=== PATIENT | female | born 1990 | race Caucasian/White ===

== ENCOUNTER 2017-01-13 10:13 | Inpatient (IN) | payer OTHER ==
[2017-01-12 11:50] VITALS: BMI 42.5
[2017-01-13] MEDS ORDERED: LIDOCAINE HCL/PF 2% SDV 5ML VIAL ONE (12:45)
[2017-01-13] MEDS ORDERED: MIDAZOLAM HCL 2 MG/2 ML SINGLE DOSE VIAL ONE (12:46)
[2017-01-13] MEDS ORDERED: PROPOFOL 20 ML ONE ×2 (12:46→12:48)
[2017-01-13] MEDS ORDERED: ROCURONIUM BROMIDE 50 MG/5 ML VIAL ONE ×2 (12:46→14:33)
[2017-01-13] MEDS ORDERED: DESFLURANE GAS 240 ML BOTTLE IH ONE (12:49)
[2017-01-13] MEDS ORDERED: BUPIVACAINE HCL/PF 0.5% (5MG/ML) 10 ML VIAL ONE (12:49)
--- NOTE | 2017-01-13 13:09 | HP ---
History & Physical Update - History History: No Change - Physical Physical: No Change - Assessment Assessment: No Change - Plan Plan: No Change Currently as noted:: Laparoscopic vertical sleeve gastrectomy possible open
[2017-01-13] MEDS ORDERED: CLINDAMYCIN PHOSPHATE 900 MG/6 ML VIAL IVPB ONE (13:59)
[2017-01-13] MEDS ORDERED: DEXAMETHASONE SOD PHOSPHATE 4 MG/1 ML VIAL ONE ×2 (14:01→15:08)
[2017-01-13] MEDS ORDERED: CLINDAMYCIN PHOSPHATE 600 MG/4 ML VIAL ONE (14:01)
[2017-01-13] MEDS ORDERED: BUPIVACAINE HCL/PF 0.5% (5MG/ML) 10 ML VIAL IJ ONE (14:15)
[2017-01-13] MEDS ORDERED: KETOROLAC TROMETHAMINE 30 MG/1 ML VIAL ONE (15:08)
[2017-01-13] MEDS ORDERED: NEOSTIGMINE METHYLSULFATE 0.5 MG/ML - 10 ML MDV ONE (15:08)
[2017-01-13] MEDS ORDERED: GLYCOPYRROLATE 0.2 MG/1 ML VIAL ONE (15:08)
[2017-01-13] MEDS ORDERED: HYDROmorphone HCL CARPU-JECT 1 MG/1 ML DISP.SYRIN IVPB PRN (15:20)
[2017-01-13] MEDS ORDERED: ONDANSETRON 4 MG/2 ML VIAL IVPUSH SCH (15:30)
[2017-01-13] MEDS ORDERED: SODIUM CHLORIDE 1,000 ML IV SCH (15:30)
[2017-01-13] MEDS ORDERED: METOCLOPRAMIDE HCL INJECTION 10 MG/2 ML VIAL IVPUSH SCH (15:30)
--- NOTE | 2017-01-13 16:06 | SPEC ---
DATE OF OPERATION: 01/13/2017 SURGEON: Liv Smalls MD SEPTIC TANK SETTER: Bolivar Loyd MD PREOPERATIVE DIAGNOSIS: Morbid obesity. POSTOPERATIVE DIAGNOSIS: Morbid obesity. PROCEDURE: Laparoscopic vertical sleeve gastrectomy and upper endoscopy. ESTIMATED BLOOD LOSS: 30 mL DRAINS: None. ANESTHESIA: GET. SPECIMEN: Greater curvature of the stomach. TUBES: A 36-Turkmen bougie. REASON FOR PROCEDURE: This is a 26-year-old female who presented to the office for weight loss options. After describing the different options, she decided to proceed with a laparoscopic, possible open vertical sleeve gastrectomy. The patient was seen by the respective subspecialties and cleared for surgery. The risks and benefits of the procedure were explained. These included bleeding, infection, hernia, PA, DVT, PE, injury to surrounding structures including the liver, colon, bowel, spleen, esophagus, vessel injury, nerve injury, weight regain, gastric leak, staple line leak, sleeve leak, obstruction, vitamin deficiency, hair loss, and as some of the possible complications. The patient understood and signed informed consent. DESCRIPTION OF PROCEDURE: The patient was placed supine on the operating room table. The patient underwent general endotracheal intubation. A Lorenzo catheter was inserted. The arms were brought out at 90 degrees and secured. A foot board was placed, and the legs were secured laterally with padding. The abdomen was prepped and draped in the usual sterile fashion. A timeout was performed. An incision was made in the left upper quadrant, and a Veress needle inserted. Pneumoperitoneum was established. Subsequently, the Veress needle was removed, and a 12-mm trocar was placed. The laparoscopic camera was inserted, and inspection of the abdominal cavity was performed. An incision was made in the supraumbilical region, and a 15-mm trocar placed under direct visualization. A 5-mm trocar was then placed in the right upper quadrant, and a 5-mm trocar placed below the left subcostal margin. A stab wound was made in the subxiphoid area, and a Anna Marie clamp inserted and removed to dilate the tract. A Manisha liver retractor was inserted. The post was secured at the bedside by the nursing staff. The patient was placed in steep reverse Trendelenburg position. The Manisha liver retractor was used to secure the liver towards the anterior abdominal wall. The pylorus was identified and 6 cm proximal to it, the lesser sac was entered using the Ligasure device. All lateral attachments to the greater curvature of the stomach including the short gastric vessels were ligated using the Ligasure device toward the gastrosplenic and gastrophrenic ligaments. Once this was done in its entirety, it was confirmed that all tubes within the nasal or oropharyngeal cavity including a temperature probe was removed by Anesthesia. The bougie was then inserted by Anesthesia. Transection of the stomach was then begun staying adjacent to the bougie but away from the angularis. Transection of the stomach was performed near the portion of the stomach where the lesser sac was entered. Two laparoscopic Endo-NICOLE black loads were used at this location. Laparoscopic Endo-NICOLE purple loads were then used for the remainder of the transection until the greater curvature of the stomach was fully transected. This was done staying close to the bougie. Care was taken to stay away from the angle of His cephalad. The staple line was then inspected. Hemostasis was identified. A leak test was then performed. The stomach was clamped distally to the staple line. Irrigation solution was placed in the left upper quadrant, and air insufflated by Anesthesia into the sleeve. No leaks were identified, and no obstruction was identified. This was done throughout the entirety of the staple line. At this point, the irrigation solution was suctioned, and again hemostasis noted. The 15-mm supraumbilical trocar was then removed, and the specimen removed from the site using a sponge stick west. The specimen was inspected, and a Veress needle inserted. The specimen insufflated adequately, and no leak was identified. The staple line was noted to be intact. A Rip Michael device was then used to temporarily close the fascia with a 0 Vicryl suture at this site. The 15-mm trocar was then reinserted, and the 12-mm trocar in the left upper quadrant removed. The fascia at this site was then closed using a Rip Michael device with a 0 Vicryl suture. Again, hemostasis was noted. The Manisha liver retractor was then removed under direct visualization. Pneumoperitoneum was desufflated, and the fascial sutures were secured. Hemostasis was noted at all incision sites, and Marcaine was injected at all incision sites. All incision sites were closed using 4-0 Biosyn. Sterile dressings were applied. The patient tolerated the procedure well, and was transferred to the recovery room in stable condition with the Lorenzo catheter intact. The patient was transferred to telemetry for further monitoring. To further look for a leak or obstruction, an upper endoscopy was performed. The endoscope was inserted into thte esophagus, GE junction, and to the entirety of the sleeve. The sleeve staple line was noted to be fully intact without any leak or obstruction. The endoscope was removed. The patient tolerated the procedure well, was transferred to recovery room in stable condition. LIV SMALLS M.D. [id number]
[2017-01-13] MEDS: ACETAMINOPHEN 1000 MG/100 ML VIAL (NON FORMULARY) IVPB SCH ×3 (16:15→21:57)
[2017-01-13 16:37] LABS: MCH 26.9 pg (25.7-33.7); MCHC 33.2 g/dl (32.0-36.0); MEAN PLT VOLUME 8.7 fl (7.5-11.1); PLATELET COUNT 256 K/MM3 (134-434); RDW 14.7 % (11.6-15.6); WHITE BLOOD COUNT 16.2 K/mm3 (4.0-10.0)
[2017-01-13] MEDS ORDERED: FAMOTIDINE 20 MG PREMIXED IVPB IVPB ONE (17:00)
[2017-01-13 17:18] LABS: ALBUMIN 3.2 g/dl (3.4-5.0); ALK PHOS 81 U/L (45-117); ANION GAP 9 (8-16); BILIRUBIN,TOTAL 0.3 mg/dL (0.2-1.0); CALCIUM 7.8 mg/dL (8.5-10.1); CO2 24 mmol/L (21-32); CREATININE 0.8 mg/dL (0.55-1.02); GLUCOSE,RANDOM 135 mg/dL (74-106); SGOT/AST 74 U/L (15-37); SGPT/ALT 92 U/L (12-78); TOT PROT 6.9 g/dl (6.4-8.2)
[2017-01-13] MEDS: SODIUM CHLORIDE 1,000 ML IV SCH (17:22)
[2017-01-13] MEDS ORDERED: HYDROmorphone HCL CARPU-JECT 1 MG/1 ML DISP.SYRIN IVPUSH PRN (17:59)
[2017-01-13] MEDS ORDERED: PROMETHAZINE HCL 25 MG/1 ML VIAL IVPUSH PRN (17:59)
[2017-01-13] MEDS ORDERED: ONDANSETRON 4 MG/2 ML VIAL IVPUSH PRN (17:59)
[2017-01-13] MEDS ORDERED: LACTATED RINGERS SOLUTION 1,000 ML IV SCH (18:00)
[2017-01-13] MEDS: HYDROmorphone HCL CARPU-JECT 1 MG/1 ML DISP.SYRIN IVPB PRN ×2 (18:34→22:09)
[2017-01-13] MEDS: ONDANSETRON 4 MG/2 ML VIAL IVPUSH SCH (19:58)
[2017-01-13] MEDS ORDERED: FAMOTIDINE 20 MG/50 ML IVPB 50 ML IVPB SCH (22:00)
[2017-01-13] MEDS ORDERED: ENOXAPARIN NA (PORCINE) 40 MG/0.4 ML DISP.SYRIN SQ SCH (22:00)
[2017-01-13] MEDS: METOCLOPRAMIDE HCL INJECTION 10 MG/2 ML VIAL IVPUSH SCH (22:48)
[2017-01-13] MEDS: FAMOTIDINE 20 MG/50 ML IVPB 50 ML IVPB SCH (22:49)
[2017-01-14] MEDS: SODIUM CHLORIDE 1,000 ML IV SCH ×2 (00:10→17:42)
[2017-01-14] MEDS: ONDANSETRON 4 MG/2 ML VIAL IVPUSH SCH ×7 (00:15→23:14)
[2017-01-14] MEDS: ACETAMINOPHEN 1000 MG/100 ML VIAL (NON FORMULARY) IVPB SCH ×3 (02:21→14:04)
[2017-01-14] MEDS: HYDROmorphone HCL CARPU-JECT 1 MG/1 ML DISP.SYRIN IVPB PRN ×4 (04:13→20:37)
[2017-01-14] MEDS: METOCLOPRAMIDE HCL INJECTION 10 MG/2 ML VIAL IVPUSH SCH ×4 (04:16→21:38)
[2017-01-14 07:14] LABS: MCH 26.9 pg (25.7-33.7); MCHC 33.3 g/dl (32.0-36.0); MEAN CELL VOLUME 80.7 fl (80-96); MEAN PLT VOLUME 8.9 fl (7.5-11.1); PLATELET COUNT 242 K/MM3 (134-434); RDW 14.6 % (11.6-15.6); WHITE BLOOD COUNT 15.3 K/mm3 (4.0-10.0)
[2017-01-14 07:36] LABS: ALBUMIN 3.2 g/dl (3.4-5.0); ALK PHOS 69 U/L (45-117); ANION GAP 9 (8-16); BILIRUBIN,TOTAL 0.4 mg/dL (0.2-1.0); CALCIUM 7.6 mg/dL (8.5-10.1); CO2 23 mmol/L (21-32); CREATININE 0.7 mg/dL (0.55-1.02); GLUCOSE,RANDOM 132 mg/dL (74-106); SGOT/AST 50 U/L (15-37); SGPT/ALT 84 U/L (12-78); TOT PROT 6.7 g/dl (6.4-8.2)
[2017-01-14] MEDS: FAMOTIDINE 20 MG/50 ML IVPB 50 ML IVPB SCH ×2 (09:26→22:45)
[2017-01-14] MEDS: ENOXAPARIN NA (PORCINE) 40 MG/0.4 ML DISP.SYRIN SQ SCH ×2 (09:33→21:38)
[2017-01-14] MEDS ORDERED: SODIUM CHLORIDE 1,000 ML IV SCH (11:45)
--- NOTE | 2017-01-14 12:11 | PN ---
Progress Note (short form) - Note Progress Note: POD #1 - s/p gastric sleeve under general anesthesia. VSS. Pt. doing well, sitting up in chair comfortably. No complaints. No apparent anesthetic complications noted. Continue current care.
[2017-01-14] MEDS ORDERED: FLU VACCINE QUAD 60 MCG/0.5 ML (MDV 17-18) IM ONE (12:27)
[2017-01-14] MEDS: ACETAMINOPHEN 325 MG TABLET (FP) PO PRN (17:36)
[2017-01-14] MEDS: oxyCODONE HCL 5 MG TABLET PO PRN (23:13)
[2017-01-15] MEDS: ONDANSETRON 4 MG/2 ML VIAL IVPUSH SCH ×2 (04:03→06:30)
[2017-01-15] MEDS: METOCLOPRAMIDE HCL INJECTION 10 MG/2 ML VIAL IVPUSH SCH (04:03)
[2017-01-15] MEDS: HYDROmorphone HCL CARPU-JECT 1 MG/1 ML DISP.SYRIN IVPB PRN (04:03)
[2017-01-15] MEDS: oxyCODONE HCL 5 MG TABLET PO PRN ×2 (07:01→09:19)
[2017-01-15] MEDS: ACETAMINOPHEN 325 MG TABLET (FP) PO PRN (09:20)
[2017-01-15] MEDS: FAMOTIDINE 20 MG/50 ML IVPB 50 ML IVPB SCH (09:21)
[2017-01-15 11:03] VITALS: BP 132/78; PULSE 84; TEMP 97
--- NOTE | 2017-01-15 21:25 | PN ---
Progress Note (short form) - Note Progress Note: Patient seen yesterday Pain controlled No nausea AVSS Abd soft, wounds- dressings dry and intact CBC, BMP 01/14/17 05:19 01/14/17 05:19 UGI- no leak/obstruction Tolerated clears Discharged home
--- NOTE | 2017-01-15 21:26 | DS ---
Physical Examination Vital Signs: Vital Signs Temperature 97.0 F L 01/15/17 10:00 Pulse Rate 84 01/15/17 10:00 Respiratory Rate 18 01/15/17 10:00 Blood Pressure 132/78 01/15/17 10:00 O2 Sat by Pulse Oximetry (%) 97 01/15/17 09:00 Constitutional: Yes: Calm Eyes: Yes: WNL Cardiovascular: Yes: WNL Respiratory: Yes: Regular Gastrointestinal: Yes: Soft Extremities: Yes: WNL Wound/Incision: Yes: Dressing Dry and Intact Neurological: Yes: Alert, Oriented Labs: CBC, BMP 01/14/17 05:19 01/14/17 05:19 Discharge Summary Reason For Visit: MORBID (SEVERE) OBESITY DUE TO EXCESS CALORIES Procedures: Principal: Laparoscopic vertical sleeve gastrectomy. EGD Condition: Stable - Instructions Diet, Activity, Other Instructions: [address] [place] [address] Addi Smalls M.D. [address] [place] [address], [address] [facility] [address] [facility] [place] [address] Robotic, Bariatric and General Surgery Postoperative Instructions for Bariatric Surgery Activity: Resume normal everyday activity as tolerated. You may walk and climb stairs without any limitation. We encourage you to walk as often as you can Do not lift anything more than 10 pounds for 8 weeks. At that time, you can return to full activity, including the gym, without limitation. Do not drive a motor vehicle while taking prescribes narcotic pain medication. Wound Care: If you have a bandage in place, leave it on for 3 days. At that time you may remove the outer bandage. If there are strips of tape on the skin after removing the outer bandage, leave them in place. They will fall off by themselves. Do not remove them. If there is clear glue on the skin after removing the outer bandage, leave it in place. Do not pick at it or peel it off. You may shower after taking the outer bandage off, 3 days after your surgery. If incisions become red, warm or open, please call the office. Diet: Continue a sugar-free, non-carbonated Clear liquid diet three times a day for the first week-Stage I diet. In addition, you should drink 8 ounces of water every hour. When drinking, sips should be slow and steady, not large and quick. After the first week, call the office to be advanced to the next dietary stage. Do not advance stages until instructed. Your diet will be advanced over the phone each week. Medications/Pain Management: You may resume previous medications unless told otherwise. The pills may be swallowed whole or broken if scored. You may take the prescribed narcotic pain medication as needed. If the narcotic medication is not needed for pain control, you may take Tylenol. Avoid all other pain medications including Advil, Ibuprofen, Motrin, Aspirin, Naprosyn, Aleve, Celebrex. You will receive Pepcid. Please take this twice a day as prescribed. Dizziness,Headaches/Gas Pain: Make sure you are getting enough fluids daily. Patients on diuretics or water pills may need medication adjusted. Some fluids such as broth or Gatorade may help. Gas pains are common in the first few weeks after surgery. At times they can be worse than surgical pain. Walking can help. You can also use Mylanta, Maalox, or Gas-X. Vomiting/Nausea: This may occur if you eat too fast, don't chew, or eat too much. Go back to fluids. If the vomiting or nausea persists, call the office. Constipation/Diarrhea: You may experience a change in bowel habits. Many things affect this, including a decrease in food intake, not enough fluid and taking pain medication. Some people experience diarrhea after the barium swallow in x-ray. If either persist, call the office. Follow up: Call the office at [phone] for an appointment 2 weeks after your surgical procedure. Disposition: HOME - Home Medications Comprehensive Discharge Medication List: Ambulatory Orders No Home Medications 0 dose .ROUTE UTDICT 03/30/12 Famotidine [Pepcid] 20 mg PO BID #60 tablet 01/13/17 Oxycodone HCl/Acetaminophen [Percocet 5-325 mg Tablet] 1 - 2 tab PO Q6H #28 tab MDD 4 01/13/17
--- NOTE | 2017-01-17 16:45 | PATH ---
Surgical Pathology Report Patient Name: INOCENCIO VOSS [facility]. Rec. #: [id number] /Age/Gender: 1990 (Age: 26) / F Account: [id number] Location: 4 W TELEMETRY U Taken: 01/13/2017 Received: 01/14/2017 Reported: 01/17/2017 Physicians: Addi Smalls M.D. Specimen(s) Received GREATER CURVATURE OF STOMACH Clinical History Morbid obesity Final Diagnosis STOMACH, GREATER CURVATURE, LAPAROSCOPIC SLEEVE GASTRECTOMY: PORTION OF STOMACH WITH MILD CHRONIC GASTRITIS. IMMUNOHISTOCHEMICAL STAIN FOR H. PYLORI IS NEGATIVE. Electronically Signed Janeth Alonso M.D. Gross Description Received in formalin, labeled "greater curvature of stomach," is a 119 gram, 14.0 x 3.8 x 3.8 cm. portion of stomach with a stapled margin of resection. The serosa is fish-fraire with minimal attached fat. The mucosa is fish-red with normal folds. No mucosal masses are identified. Shafting Worker sections are submitted in one cassette. /01/14/2017 saudi01/14/2017
== END 2017-01-15 10:07 | disposition home or self-care (01) | DRG 403 ==
LOC: EDSTATUS 11:30 → JSAMEDAYSX 11:52 → J4W 17:53
PROVIDERS: ADMIT Surgery; ATTEND Surgery
PROC: 0DB64Z3 Excision of Stomach, Percutaneous Endoscopic Approach, Vertical (ICD-10-PCS; principal; 2017-01-13 12:30)
PROC: 0DJ08ZZ Inspection of Upper Intestinal Tract, Via Natural or Artificial Opening Endoscopic (ICD-10-PCS; 2017-01-13 12:30)
DX: E66.01 Morbid (severe) obesity due to excess calories (principal); Z68.41 Body mass index [BMI] 40.0-44.9, adult
CPT/HCPCS: 36415; 74241-TC; 80053; 84703; 85027; 88307-TC; 94010; 94760